=== PATIENT | male | born 1995 | race African-American/Black ===

== ENCOUNTER 2019-11-20 10:42 | Emergency (ER) | payer OTHER ==
[~2019-11-20] VITALS: Ht 172.7 cm; Wt 89.1 kg
[2019-11-20] MEDS ORDERED: ACETAMINOPHEN 325 MG TAB PO ONE (11:30)
[2019-11-20 11:31] LABS: INFLUENZA A AMPLIFICATION NEGATIVE (NEGATIVE); INFLUENZA B AMPLIFICATION POSITIVE (NEGATIVE)
[2019-11-20 12:51] VITALS: BP 101/55
[2019-11-20] MEDS ORDERED: ONDA4TAB6 PO (12:51)
== END 2019-11-20 13:07 | disposition home or self-care (01) ==
LOC: M ED 10:42
DX: J10.89 Influenza due to other identified influenza virus with other manifestations (principal)

== ENCOUNTER → 2020-07-08 | Outpatient (CLI) | payer OTHER ==
[~2020-07-08] MED LIST: ONDA4TAB6 PO
[2020-07-11 16:08] LABS: HGB SOLUBILITY Negative (Negative)
== END ==
LOC: M PLALAB 12:43
PROVIDERS: ATTEND Advanced Practice Midwife
DX: Z31.440 Encounter of male for testing for genetic disease carrier status for procreative management (principal)